=== PATIENT | female | born 1975 | race African-American/Black ===

== ENCOUNTER 2019-04-10 02:00 | Emergency (ER) | payer OTHER ==
[~2019-04-10] VITALS: Ht 162.6 cm; Wt 86.2 kg
[2019-04-10 02:20] VITALS: BP_SYST 162
[2019-04-10] MEDS ORDERED: ONDANSETRON HCL 4 MG/2 ML VIAL IVP ONE (03:00)
[2019-04-10] MEDS ORDERED: NACL 0.9% 1,000 ML IV ONE (03:00)
[2019-04-10 03:36] LABS: BASOPHILS # (AUTO) 0.1 K/uL (0.0-0.2); BASOPHILS % (AUTO) 0.9 % (0.0-2.0); EOSINOPHILS # (AUTO) 0.2 K/uL (0.0-0.4); EOSINOPHILS % (AUTO) 2.7 % (0.0-4.0); HEMATOCRIT 36.3 % (36-48); HEMOGLOBIN 11.5 g/dL (12.0-16.0); LYMPHOCYTES # (AUTO) 3.2 K/uL (1.0-5.5); LYMPHOCYTES % (AUTO) 43.8 % (20.5-51.5); MEAN CORPUSCULAR HEMOGLOBIN 24 pg (27-31); MEAN CORPUSCULAR HGB CONC 32 % (32-36); MEAN CORPUSCULAR VOLUME 75 fL (79.0-98.0); MONOCYTES # (AUTO) 0.9 K/uL (0.0-1.0); MONOCYTES % (AUTO) 11.5 % (1.7-9.3); NEUTROPHILS % (AUTO) 41.1 % (40.0-70.0); PLATELET COUNT (AUTO) 355 K/uL (130-430); RED BLOOD CELL COUNT(AUTO) 4.83 MIL/uL (4.2-6.2); RED CELL DISTRIBUTION WIDTH 17.2 % (9.0-15.0); WHITE BLOOD COUNT (AUTO) 7.4 K/uL (4.8-10.8)
[2019-04-10 03:55] LABS: CALCIUM 8.9 mg/dL (8.4-11.0); CREATININE 0.6 mg/dL (0.55-1.30); POTASSIUM 3.7 mmol/L (3.5-5.1)
[2019-04-10 03:59] LABS: ALBUMIN 3.8 g/dL (3.4-4.8); TOTAL BILIRUBIN 0.3 mg/dL (0.0-1.0)
[2019-04-10 04:36] VITALS: BP_SYST 162
[2019-04-10 07:50] LABS: BILIRUBIN,URINE NEGATIVE (NEGATIVE); CLARITY/URINE CLEAR (CLEAR); COLOR,URINE YELLOW (YELLOW); GLUCOSE,URINE NEGATIVE (NEGATIVE); KETONES,URINE NEGATIVE (NEGATIVE); LEUKOCYTE ESTERASE ,URINE NEGATIVE (NEGATIVE); NITRITE, URINE NEGATIVE (NEGATIVE); PROTEIN URINE NEGATIVE (NEGATIVE); UROBILINOGEN,URINE 0.2 (0.2-1.0)
[2019-04-10 07:56] LABS: BLOOD, URINE TRACE (NEGATIVE)
[2019-04-10 08:02] LABS: BACTERIA,URINE RARE /HPF (None Seen); RBC,URINE 0-3 /HPF (0-3); WBC,URINE 0-3 /HPF (0-3)
[2019-04-10 08:03] LABS: MUCUS,URINE 1+ /LPF (None Seen)
== END 2019-04-10 04:36 | disposition home or self-care (01) ==
LOC: SED 02:00
DX: R10.30 Lower abdominal pain, unspecified (principal); R11.10 Vomiting, unspecified; R19.7 Diarrhea, unspecified
CPT/HCPCS: 36415; 80053; 81000; 83690; 84702; 85025; 96361; 96374; 99283; J2405; J7030